=== PATIENT | female | born 1975 | race Caucasian/White ===

== ENCOUNTER 2017-02-12 21:23 | Emergency (ER) | payer MEDICAID ==
--- NOTE | 2017-02-12 21:43 | ED Physician Chart ---
Chief Complaint/HPI - Patient Information Date Seen:: 02/12/17 Time Seen:: 21:20 Chief Complaint:: Epigastric Pain History of Present Illness:: Onset x 2 days [employer] of intermittent, crampy, epigastric Abdominal Pain with N/V/ D x 3/day; no A/C, C/P, Dyspnea, neck pain, urinary s/s; H/As, E/As, S/T, cough , congestion, melena, hematochezia, hematemesis, hemoptysis, fever, chills, rigors, dizziness, weakness, vertigo, visual or gait changes; pt is eating regular diet and is urinating well Historian:: Patient, Family Member Review:: Nurse's Note Reviewed Review of Systems - Review of Systems General/Constitutional: Fever, Chills, No weight loss, No weakness, No diaphoresis, No edema, No loss of appetite Skin: No skin lesions, No rash, No bruising Head: No headache, No light-headedness Eyes: No loss of vision, No pain, No diplopia ENT: No earache, No nasal drainage, No sore throat, No tinnitus Neck: No neck pain, No swelling, No thyromegaly, No stiffness, No mass noted Cardio Vascular: No chest pain, No palpitations, No PND, No orthopnea, No edema Pulmonary: No SOB, No cough, No sputum, No wheezing GI: Nausea, Vomiting, Diarrhea, Pain, No melena, No hematochezia, Constipation, No hematemesis G/U: No dysuria, No frequency, No hematuria As400 Administrator: No vaginal discharge, No abnormal vaginal bleed, No contraction Musculoskeletal: No bone or joint pain, No back pain, No muscle pain Endocrine: No polyuria, No polydipsia Psychiatric: No prior psych history, No depression, No anxiety, No suicidal ideation, No homicidal ideation, No auditory hallucination, No visual hallucination Hematopoietic: No bruising, No lymphadenopathy Allergic/Immuno: No urticaria, No angioedema Neurological: No syncope, No focal symptoms, No weakness, No paresthesia, No headache, No seizure, No dizziness, No confusion, No vertigo Past Medical History - Past Medical History Obtainable: Yes Past Medical History: No significant medical hx Family History: HTN Social History: Non Smoker, No Alcohol, No Drug Use, Single Surgical History: Psychiatricy History: None Medication: Reviewed Family Medical History - Family Member Mother History Unknown: Yes Ethnicity: Living Status: Still Living Hx Family Diabetes: Yes Physical Exam - Physical Examination General/Constitutional: Awake, Well-developed, well-nourished, Alert, No distress, GCS 15, Non-toxic appearing, Ambulatory Head: Atraumatic Eyes: Lids, conjuctiva normal, PERRL, EOMI Skin: Nl inspection, No rash, No skin lesions, No ecchymosis, Well hydrated, No lymphadenopathy ENMT: External ears, nose nl, Nasal exam nl, Lips, teeth, gums nl Neck: Nontender, Full ROM w/o pain, No JVD, No nuchal rigidity, No bruit, No mass, No stridor Respiratory: Nl effort/Exclusion, Clear to Auscultation, No Wheeze/Rhonchi/Rales Cardio Vascular: RRR, No murmur, gallop, rubs, NL S1 S2 GI: No tenderness/rebounding/guarding, No organomegaly, No hernia, Normal BS's, Nondistended, No mass/bruits, No McBurney tenderness : No CVA tenderness Extremities: No tenderness or effusion, Full ROM, normal strength in all extremities, No edema, Normal digits & nails Neuro/Psych: Alert/oriented, DTR's symmetric, Normal sensory exam, Normal motor strength, Judgement/insight normal, Mood normal, Normal gait, No focal deficits Misc: normal gait, Normal back, No paraspinal tenderness Labs/Radiology/EKG Results - Lab Results Results: WBC: 12.9; Na+: 133; BHCG: Negative - Radiology Results Results: CAT Scan: Negative - EKG Interpretations EKG Time:: 22:55 Rate & Rhythm: 79; NSR ED Septic Shock - . Is Septic Shock (SBP<90, OR Lactate>4 mmol\L) present?: No Reassessment (Disposition) - Reassessment Reassessment:: pt tolerated po fluids well in ER; pt is asymptomatic upon discharge Reassessment Condition:: Improved - Diagnosis Diagnosis:: Abdominal Pain; Vomiting/Diarrhea; Gastroenteritis; AGE; Hyponatremia; Leukocytosis; Abdominal Pain-Resolved; Gastritis - Aftercare/Follow up Instructions Aftercare/Follow-Up Instructions:: Counseled pt regarding lab results/diagnosis & need follow up, Refer to Discharge Instructions, Counseled pt & family regarding lab results/diagnosis & need follow up Medication Prescribed:: Clear Liquid Diet; Encourage Fluids - Patient Disposition Discharge/Transfer:: Home Condition at Disposition:: Stable, Improved (RTER prn if existing s/s reoccur and/or get worse and/or any other new s/s occur; X-Rays Instructions; ACIs given ; Refer to GI Specialist/Drilling Plant Operator MARVIN; F/U with PMD in one day or prn; RTER prn if concerned)
[2017-02-12] MEDS ORDERED: Sodium Chloride 0.9% 1,000 ML IV ONE (21:55)
[2017-02-12 22:40] LABS: % BASOPHILS 0.8 % (0.0-2.0); % EOSINOPHILS 0.8 % (0.0-5.0); % MONOCYTES 3.1 % (2.0-10.0); % NEUTROPHILS 87.3 % (40.0-80.0); HEMATOCRIT 39.6 % (35.0-45.0); HEMOGLOBIN 13.4 gm/dL (11.7-15.5); MEAN CELL VOLUME 79.9 fl (81-100); MEAN CORPUSCULAR HGB CONC 33.9 pg (28.0-36.0); MEAN PLATELET VOLUME 8.2 fl; NEUTROPHILE ABSOLUTE 11.3 Th/cmm (1.8-8.0); PLATELET COUNT 284 Th/cmm (150-400); RED BLOOD COUNT 4.96 Mil/cmm (3.80-5.10); RED CELL DISTRIBUTION WIDTH 13.6 % (11.5-20.0)
[2017-02-12 22:41] LABS: WHITE BLOOD COUNT 12.9 Th/cmm (4.8-10.8)
[2017-02-12 22:45] LABS: INR 0.9 (0.5-1.4); PROTHROMBIN TIME (TEST) 9.4 SECONDS (9.5-11.5)
[2017-02-12 22:47] LABS: ALB/GLOB RATIO 1.4 (1.0-1.8); ALKALINE PHOSPHATASE 60 U/L (34-104); AMYLASE SERUM 72 U/L (29-103); ANION GAP 8.9 (7.0-16.0); BILIRUBIN,TOTAL 0.4 mg/dL (0.3-1.0); BUN - UREA NITROGEN 15 mg/dL (7-25); BUN/CREATININE RATIO 21.4; CALCIUM SERUM 9.2 mg/dL (8.6-10.3); CARBON DIOXIDE 21.9 mEq/L (21.0-31.0); CHLORIDE 106 mEq/L (98-107); CHOLESTEROL 199 mg/dL (<200); CREATININE - SERUM 0.7 mg/dL (0.6-1.2); GLUCOSE 101 mg/dL (70-105); LIPASE 20 U/L (11-82); POTASSIUM SERUM 3.8 mEq/L (3.5-5.1); SGOT 21 U/L (13-39); SGPT/ALT 15 U/L (7-52); SODIUM SERUM 133 mEq/L (136-145); TRIGLYCERIDES 125 mg/dL (<150)
[2017-02-12 22:50] LABS: BNP 8.5 pg/mL (5.0-100.0)
[2017-02-12 22:57] LABS: TROP I 0.01 ng/mL (0.01-0.05)
[2017-02-13 01:22] LABS: URINE BILIRUBIN NEGATIVE (NEGATIVE); URINE COLOR STRAW; URINE GLUCOSE (UA) NEGATIVE (NEGATIVE); URINE KETONE NEGATIVE (NEGATIVE)
[2017-02-13 01:23] LABS: URINE BACTERIA NONE SEEN /hpf (NONE SEEN); URINE BLOOD TRACE (NEGATIVE); URINE EPITHELIAL CELLS NONE SEEN /lpf (FEW); URINE PH 5.5; URINE PROTEIN NEGATIVE (NEGATIVE); URINE RBC NONE SEEN /hpf (0-5); URINE UROBILINOGEN 0.2 E.U./dL (0.2 - 1.0); URINE WBC NONE SEEN /hpf (0-5)
[2017-02-13] MEDS ORDERED: Morphine Sulfate 2 mg/mL 1mL Syr ONE (02:15)
--- NOTE | 2017-02-13 12:05 | Diagnostic Imaging Report ---
CT scan abdomen and pelvis without intravenous contrast HISTORY: Pain Total DLP equals 501 CTDI equals 9.9 Axial sections were obtained from the xiphoid process down to the pubic symphysis. The liver exhibits a normal size and contour. No focal lesions. The spleen appears normal. No abnormality seen in the region of the pancreas. No focal renal lesions. No hydronephrosis. There is a small fat-containing umbilical hernia. The exam of the pelvis demonstrates a bulbous shaped uterus. No other abnormal masses or abnormal fluid collections. IMPRESSION: 1. No definite acute abnormalities
== END 2017-02-13 04:20 | disposition home or self-care (01) ==
LOC: ER 21:23
DX: K52.9 Noninfective gastroenteritis and colitis, unspecified (principal); E87.1 Hypo-osmolality and hyponatremia; E86.0 Dehydration; D72.829 Elevated white blood cell count, unspecified; K29.70 Gastritis, unspecified, without bleeding
CPT/HCPCS: 99285; 96374; 94760; 93005; 84484; 83880; 36415; 83605; 85025; 85610; 81001; 82150; 82550; 84703; 83690; 80053; 80061; 87040; 74176; J2270; 81025-TC; J7030

== ENCOUNTER 2017-11-25 20:39 | Emergency (ER) | payer MEDICAID ==
[2017-11-25] MEDS ORDERED: Tetracaine 0.5% Ophth Soln 15 mL Soln RIGHT EYE ONE (22:05)
--- NOTE | 2017-11-25 22:14 | ED Physician Chart ---
ED Chief Complaint/HPI - Patient Information Date Seen:: 11/25/17 Time Seen:: 20:25 Chief Complaint:: right eye blurry vision and pain History of Present Illness:: location; right eye quality: blurry vision and pain severity: moderate duration; 3 months context; pt reports onset of blurry vision and pain in right eye at least 3 months ago. went to her primary physician who referred her to the ER for evaluation. pt says she was scared and so never went to the ER to get her eyes checked. has been to PCP. has not been to eye doctor during this HPI. decided to come to the ER today for physician examination. says she finally got the courage to come to the ER for evaluation. says she has had blurry vision and mild pain at right eye for long duration. no loss of vision. no floaters. no visual aberrations. no redness or discharge or bleeding from the right eye. mod factors: none assoc s/s: none hx from pt. PSH: section Allergies:: Allergies Allergy/AdvReac Type Severity Reaction Status Date / Time No Known Allergies Allergy Verified 11/25/17 20:55 Vitals:: Vital Signs - 8 hr 11/25/17 11/25/17 20:55 21:30 Temp 97.6 F 97.6 F HR 88 88 RR 18 16 BP 138/96 138/96 O2 Sat % 98 98 Historian:: Patient Review:: Nurse's Note Reviewed ED Review of Systems - Review of Systems General/Constitutional: No fever, No chills, No weight loss, No weakness, No diaphoresis, No edema, No loss of appetite Skin: No skin lesions, No rash, No bruising Head: No headache, No light-headedness Eyes: No loss of vision, Pain, No diplopia, Other (blurry vision and pain right eye for 3 months) ENT: No earache, No nasal drainage, No sore throat, No tinnitus Neck: No neck pain, No swelling, No thyromegaly, No stiffness, No mass noted Cardio Vascular: No chest pain, No palpitations, No PND, No orthopnea, No edema Pulmonary: No SOB, No cough, No sputum, No wheezing GI: No nausea, No vomiting, No diarrhea, No pain, No melena, No hematochezia, No constipation, No hematemesis G/U: No dysuria, No frequency, No hematuria Musculoskeletal: No bone or joint pain, No back pain, No muscle pain Endocrine: No polyuria, No polydipsia Psychiatric: No prior psych history, No depression, No anxiety, No suicidal ideation Hematopoietic: No bruising, No lymphadenopathy Allergic/Immuno: No urticaria, No angioedema Neurological: No syncope, No focal symptoms, No weakness, No paresthesia, No headache, No seizure, No dizziness, No confusion, No vertigo ED Past Medical History - Past Medical History Past Medical History: No significant medical hx Family History: None Social History: Non Smoker, No Alcohol, No Drug Use, Psychiatricy History: None Medication: None Family Medical History - Family Member Mother History Unknown: Yes Ethnicity: Living Status: Still Living Hx Family Diabetes: Yes ED Physical Exam - Physical Examination General/Constitutional: Awake, Well-developed, well-nourished, Alert, No distress, GCS 15, Non-toxic appearing, Ambulatory Head: Atraumatic Eyes: Lids, conjuctiva normal, PERRL, EOMI (right eye with normal pupillary response. EOMI. some gross reduced visual acuity. pt says she has difficulty identifying examiners blue gloved fingers at arms length. says vision from the right eye is very blurry. no loss of vision is reported. ) Skin: Nl inspection, No rash, No skin lesions, No ecchymosis, Well hydrated, No lymphadenopathy Neck: Nontender Respiratory: Nl effort/Exclusion, Clear to Auscultation, No Wheeze/Rhonchi/Rales Cardio Vascular: RRR, No murmur, gallop, rubs, NL S1 S2 GI: No tenderness/rebounding/guarding : No CVA tenderness Extremities: No tenderness or effusion, Normal digits & nails Neuro/Psych: Alert/oriented Misc: Normal back, No paraspinal tenderness ED Labs/Radiology/EKG Results - Lab Results Results: pt stable while in ER. no new complaints. ED Septic Shock - . Is Septic Shock (SBP<90, OR Lactate>4 mmol\L) present?: No - <6hrs of presentation: Vital Signs: Vital Signs - 8 hr 11/25/17 11/25/17 20:55 21:30 Temp 97.6 F 97.6 F HR 88 88 RR 18 16 BP 138/96 138/96 O2 Sat % 98 98 ED Reassessment (Disposition) - Reassessment Reassessment:: pt in stable condition while in ER. using tonopen intraocular pressure right eye is 26 with 95% confidence interval as measured using Ashlie device. unable to perform adequate corneal exam due to bright room and no mydriatic medications also no slit lamp. cursory ophthalmoscope exam reveals cloudiness at location of vitreous. no hemorrhage. cornea not visualized. comparison exam of left eye shows clear vitreous and normal cornea. normal cup/ disc ratio. no abnormality. pt is advised that her intraocular pressure at this exam is higher than normal. pt is advised that due to long course of her symptoms, HPI - 3 months or more that she is advised to go to the eye doctor for evaluation and treatment of her symptoms within 24 hours. pt says she will go to the eye doctor tomorrow for further treatment. pt gives additional history after above exam and says she did go to the [facility] about 2 months ago and was referred to an opthalmologist but did not go to the specialist. visual acuity: R blurry vision - pt cannot identify any items on Snellen chart left eye 20/25. Reassessment Condition:: Improved (some mild improvement in pain after meds) - Diagnosis Diagnosis:: open angle glaucoma, vitreous abnormality, other - Aftercare/Follow up Instructions Aftercare/Follow-Up Instructions:: Refer to Discharge Instructions - Patient Disposition Discharge/Transfer:: Home Condition at Disposition:: Stable, Improved
[2017-11-25] MEDS ORDERED: TETRACAINE HCL 0.5% OPHTH SOLN 4ML BOTTLE ONE (22:15)
== END 2017-11-25 23:30 | disposition home or self-care (01) ==
LOC: ER 20:39
DX: H40.10X0 Unspecified open-angle glaucoma, stage unspecified (principal); H43.819 Vitreous degeneration, unspecified eye
CPT/HCPCS: Z7502